=== PATIENT | female | born 1950 | race Caucasian/White ===

== ENCOUNTER → 2017-03-29 | Outpatient (REF) | payer MEDICARE ==
[2017-03-29 18:54] LABS: BASO % 0.4 % (0.0-1.0); EOS # 0.1 K/mm3 (0.0-0.50); EOS % 1.5 % (0.0-3.0); LARGE UNSTAINED CELL # 0.2 K/mm3 (0.0-0.4); LYMPH # 2.1 K/mm3 (1.5-4.5); LYMPH % 32.3 % (24.0-44.0); MEAN CORPUSCULAR HEMOGLOBIN 32.3 pg (27.0-33.0); MEAN CORPUSCULAR HGB CONC 35.4 g/dl (32.0-36.5); MEAN CORPUSCULAR VOLUME 91.2 fl (80.0-96.0); MONO # 0.4 K/mm3 (0.0-0.8); MONO % 6.1 % (0.0-5.0); NEUTROPHILS # 3.7 K/mm3 (1.8-7.7); NEUTROPHILS % 56.7 % (36.0-66.0); PLATELET COUNT, AUTOMATED 286 k/mm3 (150-450); WHITE BLOOD COUNT 6.5 K/mm3 (4.0-10.0)
[2017-03-29 20:51] LABS: ERYTHROCYTE SEDIMENTATION RATE 28 mm/hr (0-30)
[2017-04-03 00:06] LABS: Lyme Disease IgG/IgM Antibodie <0.91 ISR (0.00-0.90); Lyme Disease IgM Ab Quantitati <0.80 index (0.00-0.79)
== END ==
LOC: M LABDRAW1 15:13
PROVIDERS: ATTEND Orthopaedic Surgery
DX: M25.551 Pain in right hip (principal)

== ENCOUNTER → 2017-06-27 | Outpatient (CLI) | payer MEDICARE, BC, OTHER ==
[~2017-06-27] MED LIST: LEVO88TA3 PO; TRAM50TA2 PO
[2017-06-27 11:54] LABS: MEAN CORPUSCULAR HEMOGLOBIN 29.6 pg (27.0-33.0); MEAN CORPUSCULAR HGB CONC 33.5 g/dl (32.0-36.5); MEAN CORPUSCULAR VOLUME 88.4 fl (80.0-96.0); PLATELET COUNT, AUTOMATED 262 10^3/uL (150-450); RED CELL DISTRIBUTION WIDTH 12.6 % (11.5-14.5)
[2017-06-27 12:04] LABS: INR 0.86
[2017-06-27 12:21] LABS: ALBUMIN/GLOBULIN RATIO 1.11 (1.00-1.93); ALKALINE PHOSPHATASE 94 U/L (45-117); ALT/SGPT 30 U/L (12-78); ANION GAP 5 MEQ/L (8-16); AST/SGOT 23 U/L (7-37); BILIRUBIN,TOTAL 0.6 MG/DL (0.2-1.0); BLOOD UREA NITROGEN 12 MG/DL (7-18); CALCIUM LEVEL 9.5 MG/DL (8.8-10.2); CARBON DIOXIDE LEVEL 31 MEQ/L (21-32); CHLORIDE LEVEL 106 MEQ/L (98-107); CREATININE FOR GFR 0.71 MG/DL (0.55-1.02); GLOMERULAR FILTRATION RATE > 60.0 (>45); GLUCOSE, FASTING 91 MG/DL (80-110); POTASSIUM SERUM 4.5 MEQ/L (3.5-5.1); SODIUM LEVEL 142 MEQ/L (136-145); TOTAL PROTEIN 7.6 GM/DL (6.4-8.2)
--- NOTE | 2017-06-27 12:26 | REP ---
Chest two views HISTORY: Preop Comparison: None A calcified granuloma is present in the left lower lobe. Linear density is present in the left lower lobe consistent with atelectasis or scar. The right lung is clear. The heart is normal in size. The pulmonary vasculature is normal in appearance. The bony structure is intact. IMPRESSION: 1. Old granulomatous disease. 2. Left lower lobe atelectasis or scar. Signed by Dung Rodriguez MD 06/27/2017 12:18 P
[2017-06-27 12:33] LABS: ERYTHROCYTE SEDIMENTATION RATE 24 mm/hr (0-30)
--- NOTE | 2017-06-27 18:15 | ECGEPIP ---
Stationary ECG Study 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 No prior tracing. Electronically Signed On 06-27-2017 18:14:58 EST by Marquis Vicente
== END ==
LOC: M ADMPAT 10:03
PROVIDERS: ATTEND Orthopaedic Surgery
DX: Z01.818 Encounter for other preprocedural examination (principal); J84.10 Pulmonary fibrosis, unspecified; R00.1 Bradycardia, unspecified; M16.12 Unilateral primary osteoarthritis, left hip

== ENCOUNTER 2017-07-10 07:12 | Inpatient (IN) | payer MEDICARE, BC, OTHER ==
[2017-06-27 11:04] VITALS: BP 160/86
[~2017-07-10] VITALS: Ht 157.5 cm; Wt 67.6 kg
[2017-07-10] MEDS ORDERED: LR 1,000 ML IV SCH ×2 (07:30→12:15)
[2017-07-10] MEDS ORDERED: PROPOFOL 200 MG/20 ML VIAL As Ordered ONE (09:03)
[2017-07-10] MEDS ORDERED: LIDOCAINE 2% INJ 100 MG/5 ML SDV (FOR ANES.) As Ordered ONE (09:03)
[2017-07-10] MEDS ORDERED: fentaNYL 100 MCG/2 ML INJECTION (J3010) As Ordered ONE (09:04)
[2017-07-10] MEDS ORDERED: MIDAZOLAM INJ 2 MG/2 ML VIAL (J2250) As Ordered ONE (09:04)
[2017-07-10] MEDS ORDERED: TRANEXAMIC ACID 100 MG/ML 10ML VIAL As Ordered ONE (09:28)
[2017-07-10] MEDS ORDERED: ceFAZolin 1GM INJ (J0690 PER 500MG) As Ordered ONE (09:28)
[2017-07-10] MEDS ORDERED: EPINEPHrine INJ 1 MG/ML 1ML AMP As Ordered ONE (09:29)
[2017-07-10] MEDS ORDERED: ePHEDrine SULFATE 25 MG/5 ML(5MG/ML) SYRINGE As Ordered ONE (10:35)
[2017-07-10] MEDS ORDERED: PHENYLephrine HCL 500 MCG/5 ML (100MCG/ML) SYRINGE (J2370) As Ordered ONE (10:42)
[2017-07-10] MEDS ORDERED: ONDANSETRON 4MG/2ML VIAL (J2405) IV PRN ×3 (12:15)
[2017-07-10] MEDS ORDERED: NALBUPHINE HCL 10 MG/ML AMP (J2300) IV PRN (12:15)
[2017-07-10] MEDS ORDERED: FLEET ENEMA PR PRN (12:15)
[2017-07-10] MEDS ORDERED: diphenhydrAMINE INJ 50MG/ML VIAL (J1200) IV PRN (12:15)
[2017-07-10] MEDS ORDERED: fentaNYL 100 MCG/2 ML INJECTION (J3010) IV PRN (12:15)
[2017-07-10] MEDS ORDERED: ACETAMINOPHEN TAB 650MG DOSE (2X325MG) PO PRN (12:15)
[2017-07-10] MEDS: LR 1,000 ML IV SCH ×2 (12:15→22:13)
[2017-07-10] MEDS ORDERED: MORPHINE 1MG/ML IN 0.9% NACL 100ML IV BAG IV PRN (12:15)
[2017-07-10] MEDS ORDERED: EPIDURAL/PCA KEYS XX PRN (12:15)
[2017-07-10] MEDS ORDERED: NALOXONE INJ 0.4 MG/1 ML VIAL (J2310) IV PRN (12:15)
[2017-07-10 16:15] VITALS: BP 129/60
[2017-07-10] MEDS ORDERED: WARFARIN SOD 5 MG TAB PO ONE (17:00)
[2017-07-10 17:32] VITALS: O2SAT 97
[2017-07-10 18:00] VITALS: BP 119/55
[2017-07-10 20:00] VITALS: BP 112/64
[2017-07-10 22:00] VITALS: BP 110/64
[2017-07-11] VITALS (7 sets, daily range): BP systolic 110–127; BP diastolic 58–77; O2SAT 94–98
[2017-07-11] MEDS ORDERED: ONDANSETRON 4 MG TAB (S0181) PO PRN (06:45)
[2017-07-11] MEDS ORDERED: PERCOCET 5MG/325MG TAB PO PRN (06:45)
[2017-07-11 06:49] LABS: MEAN CORPUSCULAR HEMOGLOBIN 29.6 pg (27.0-33.0); MEAN CORPUSCULAR HGB CONC 33.8 g/dl (32.0-36.5); MEAN CORPUSCULAR VOLUME 87.6 fl (80.0-96.0); PLATELET COUNT, AUTOMATED 193 10^3/uL (150-450); RED CELL DISTRIBUTION WIDTH 12.9 % (11.5-14.5); WHITE BLOOD COUNT 7.5 10^3/uL (4.0-10.0)
[2017-07-11 06:58] LABS: INR 1.25
--- NOTE | 2017-07-11 08:05 | IPN ---
DATE: 07/10/2017 The patient is seen and examined. She wished to proceed with a left total hip arthroplasty. She understands the nature of the procedure, the risks of bleeding, infection, damage to nerves, vessels, persistent pain, wear loosening, dislocation, leg length inequality, blood clots, medical problems, among others. A preop clearance was obtained. The left hip was initialed.
[2017-07-11] MEDS: PERCOCET 5MG/325MG TAB PO PRN ×2 (09:50→21:06)
[2017-07-11] MEDS: SENOKOT S TAB PO SCH ×2 (09:50→21:05)
[2017-07-11] MEDS: MOM 30ML SUSPENSION UDC PO SCH (09:50)
[2017-07-11] MEDS: MIRALAX *UNIT DOSE* 17GM PACKET PO SCH (09:50)
--- NOTE | 2017-07-11 12:09 | RO ---
DATE OF PROCEDURE: 07/10/2017 PREOPERATIVE DIAGNOSIS: Left hip osteoarthritis. POSTOPERATIVE DIAGNOSIS: Left hip osteoarthritis. SURGEON: Bal Levin MD CORRUGATED BOX MACHINE OPERATOR: JACK Manzanares PROCEDURE: Left total hip arthroplasty using a Spalding size 4 high offset 50 acetabular component 32 +5 head. ANESTHESIA: Spinal. ESTIMATED BLOOD LOSS: 200. COMPLICATIONS: None. INDICATIONS: This is a 67-year woman has had some gradually worsening left hip pain. She has severe arthritis on x-ray and she wished to go ahead with the hip replacement. She understood the nature of this, the risks of bleeding, infection, damage to nerves, vessels, persistent pain, wear loosening, dislocation, leg length inequality, blood clots, medical problems, , among others. DESCRIPTION OF PROCEDURE: Patient was taken to the operating room, placed in a right lateral decubitus position on the [place] positioner, left hip was prepped and draped in usual sterile fashion. Time-out was performed. I then created a longitudinal incision over the lateral aspect of the hip and sharp dissection was carried down through subcutaneous tissue until the fascia was encountered. This was incised. I then divided the anterior 40% of the abductor off exposing the femoral neck and the proximal femur as we externally rotated the femur. I then dislocated the hip without difficulty. I used a canal initiating reamer, followed by the intramedullary reamer, followed by the lateralizing reamer and then sequentially reamed up to a size 4, which is what we templated to. The neck cut was then made about three-quarters of a fingerbreadth up from lesser trochanter. I removed the head. We prepared the acetabulum by removing soft tissue from around the acetabulum and then sequentially reamed up to a size 49, which had good bleeding bone and good concentric reaming. I impacted in the 50 cup. This was secured and well seated. Largo hole eliminator was placed, followed by the polyethylene, which was a 32 x 50. This was impacted in place and made sure it was well secured. I removed some osteophytes from around the anterior posterior aspect of the acetabulum. I did have to deepen the acetabulum a fair amount to get down to the medial wall and therefore, I was anticipating using high offset stem to make up a little bit for this. I then prepared the canal, sequentially broached up to a size 4, which had a good fit and a solid fixation, and trialed this and decided on the high offset +5 neck. We then removed this. I had irrigated multiple times prior to this. I again irrigated now, impacted in the actual high offset size 4 stem, placed the +5 ball and reduced the hip. I put the hip through range of motion. The shorter neck lengths were felt to be a little bit unstable in flexion internal rotation and extension external rotation, but this was very stable in extremes of motion with no impingement. The hip was then irrigated. The tranexamic acid (TXA) solution was placed. I closed the deep layer with #1 Vicryl suture, the abductor with #1 Vicryl suture through bony holes. I closed the fascia robel with #1 Vicryl sutures, running Stratafix suture, the subcu with #2-0 Vicryl and the skin with loreta. Sterile dressing was applied, and she was taken to recovery room in stable condition. There were no known complications. The plan be routine post-op. The environmental services assistant was instrumental in holding retractors and assisting reducing and dislocating the hip, and assisting in wound closure. LIBBY
--- NOTE | 2017-07-11 14:45 | IPNPDOC ---
Date Seen The patient was seen on 07/11/17. Progress Note SUBJECTIVE: Patient is a 67 yo female seen at bedside, post op day 1 for Left ARTHUR. Feels her pain is adequately controlled. No overnight issues. Denies: CP, MCKINLEY, SOB, cough wheeze, f/c/r, n/v/d. Voiding ok, no BM yet. OBJECTIVE PHYSICAL EXAMINATION: VITAL SIGNS: Please see below. GENERAL: NAD, A&OX3, Pleasant HEENT: PERRLA, throat clear, neck supple, no JVD CARDIOVASCULAR: RRR RESPIRATORY: CTA Bilaterally ABDOMINAL: soft, NT/ND normoactive bowel sounds EXTREMITIES: no edema/no calf tenderness NEUROLOGICAL: CN'S II-XII grossly intact PSYCHOLOGICAL: negative LABORATORY DATA: Please see below. DVT prophylaxis ordered?: yes per Ortho ASSESSMENT AND PLAN: This is a 67 yo female post op day 1 Left ARTHUR. Hospitalist service has been requested to be involved for medical management. PROBLEMS: 1. Osteoarthritis Left Hip: post-op day 1 for Left ARTHUR. Pain control, bowel meds, PT, and anticoagulation at the discretion of Orthopedics. 2. Hypothyroidism: continue Levothyroxine 3. Mild Respiratory Hypoxia: likely needs to ambulate and will see if her oxygen requirements will return to normal. She doesn't appear to have a history placing her at risk for STANISLAV. Will continue to monitor, should her oxygen requirements increase will consider Lance monitoring. DISPOSITION: Doing well from a medical perspective. No further recommendations at this time. Will continue to follow with you during her hospital stay. VS, I&O, 24H, Fishbone Vital Signs/I&O Vital Signs Date Time Temp Pulse Resp B/P (MAP) Pulse Ox O2 Delivery O2 Flow Rate FiO2 07/11/17 10:39 16 07/11/17 10:00 99.0 81 110/58 (75) 91 Nasal Cannula 2.0 I&O- Last 24 Hours up to 6 AM 07/11/17 06:00 Intake Total 1460 ml Output Total 950 ml Balance 510 ml Laboratory Data 24H LABS Laboratory Tests 2 07/11/17 06:30: Nucleated Red Blood Cells % (auto) 0.0, Prothrombin Time 15.9H, Prothromb Time International Ratio 1.25 CBC/BMP Laboratory Tests 07/11/17 06:30 Red Blood Count 4.12, Mean Corpuscular Volume 87.6, Mean Corpuscular Hemoglobin 29.6, Mean Corpuscular Hemoglobin Concent 33.8, Red Cell Distribution Width 12.9 YUE SHORT DO Jul 11, 2017 14:45
[2017-07-11] MEDS ORDERED: WARFARIN SOD 5 MG TAB PO ONE (17:00)
[2017-07-12 06:00] VITALS: BP 126/74
[2017-07-12 07:11] LABS: MEAN CORPUSCULAR HEMOGLOBIN 29.5 pg (27.0-33.0); MEAN CORPUSCULAR HGB CONC 33.6 g/dl (32.0-36.5); MEAN CORPUSCULAR VOLUME 87.8 fl (80.0-96.0); PLATELET COUNT, AUTOMATED 180 10^3/uL (150-450); RED CELL DISTRIBUTION WIDTH 12.8 % (11.5-14.5); WHITE BLOOD COUNT 10.3 10^3/uL (4.0-10.0)
[2017-07-12 07:21] LABS: INR 2.61
[2017-07-12] MEDS ORDERED: PERC5TAB12 PO (08:32)
[2017-07-12] MEDS ORDERED: COUM2.5T17 PO (08:32)
[2017-07-12] MEDS: MIRALAX *UNIT DOSE* 17GM PACKET PO SCH (08:57)
[2017-07-12] MEDS: MOM 30ML SUSPENSION UDC PO SCH (08:57)
[2017-07-12] MEDS: SENOKOT S TAB PO SCH (08:58)
--- NOTE | 2017-07-12 13:09 | REP ---
LEFT HIP, TWO VIEWS: Two views of the left hip are performed. There is a total hip prosthesis in good position. Structures are well aligned. Metallic skin loreta are seen laterally. Signed by Casey Del Real MD 07/12/2017 08:39 P
--- NOTE | 2017-07-17 10:02 | DSES ---
DATE OF ADMISSION: 07/10/2017 DATE OF DISCHARGE: 07/12/2017 HISTORY OF PRESENT ILLNESS: This is a pleasant female with continuing symptomatic left hip osteoarthritis. She consented for a left total hip arthroplasty per Dr. Bal Levin and the patient was medically optimized. X- rays were consistent with advanced osteoarthritis. OPERATION PERFORMED: Left total hip arthroplasty. HOSPITAL COURSE: The patient underwent a left total hip total hip arthroplasty on 07/10/2017 under spinal anesthesia and was returned to recovery comfortable. Postoperative instructions include thromboembolic deterrent (NEIL) stockings and Coumadin times 30 days. Diet is regular. Percocet as needed (p.r.n.) for pain. Weightbearing as tolerated with a walker. The patient will have Optifoam dressing change in 3-4 days time and follow up in our clinic in 12-14 days for wound check and staple removal. She is encouraged to contact us sooner with increased pain, numbness and tingling down the lower extremity, redness, drainage, bleeding, fever greater than 101, or further concerns. LIBBY
== END 2017-07-12 12:55 | disposition home health service (06) | DRG 470 ==
LOC: M OR 07:12 → M MS5PR 16:05
PROVIDERS: ADMIT Orthopaedic Surgery; ATTEND Orthopaedic Surgery
PROC: 0SRB0JA Replacement of Left Hip Joint with Synthetic Substitute, Uncemented, Open Approach (ICD-10-PCS; principal; 2017-07-10 10:09)
DX: M16.12 Unilateral primary osteoarthritis, left hip (principal); E03.9 Hypothyroidism, unspecified; Z79.899 Other long term (current) drug therapy

== ENCOUNTER → 2017-07-26 | Outpatient (REF) | payer MEDICARE, OTHER ==
[2017-07-26 12:03] LABS: INR 1.14; PROTHROMBIN TIME 14.8 SECONDS (12.4-14.5)
== END ==
LOC: M LABDRAW1 09:46
DX: Z51.81 Encounter for therapeutic drug level monitoring (principal); Z79.01 Long term (current) use of anticoagulants
CPT/HCPCS: 85610